=== PATIENT | female | born 1990 | race Two or more races ===

== ENCOUNTER 2024-05-25 05:02 | Inpatient (IN) ==
[2024-05-25 05:20] VITALS: BMI 23.9
[2024-05-25 05:31] LABS: AMNISURE ROM TEST THERE IS A RUPTURE (NO RUPTURE)
[2024-05-25 05:38] LABS: EOSINOPHILS % (AUTO) 0.3 % (0.9-2.9); HEMOGLOBIN 11.2 g/dL (12.0-16.0); LYMPHOCYTES # (AUTO) 3.3 X10^3/uL (1.3-2.9); MONOCYTES # (AUTO) 0.6 x10^3/uL (0.3-0.8)
[2024-05-25 05:43] LABS: BASOPHILS # (AUTO) 0.1 X10^3/uL (0.0-0.1); BASOPHILS % (AUTO) 0.8 % (0.2-1.0); HEMATOCRIT 34.6 % (36.0-47.0); LYMPHOCYTES % (AUTO) 44.3 % (21.0-51.0); MEAN CORPUSCULAR HEMOGLOBIN 29.8 pg (27.0-34.0); MEAN CORPUSCULAR HGB CONC 32.5 g/dL (33.0-35.0); MEAN CORPUSCULAR VOLUME 91.5 fL (80.0-100.0); MEAN PLATELET VOLUME 12.8 fL (7.4-11.0); NEUTROPHILS # (AUTO) 3.4 x10^3/uL (2.2-4.8); NEUTROPHILS % (AUTO) 46.6 % (42.0-75.0); PLATELET COUNT 101 X10^3/uL (150.0-450.0); RED BLOOD COUNT 3.78 X10^6/uL (3.5-5.4); RED CELL DISTRIBUTION WIDTH 14.1 % (11.6-16.5); WHITE BLOOD COUNT 7.4 X10^3/uL (3.6-10.0)
[2024-05-25 05:51] LABS: GIANT PLATELET RARE; PLATELET MORPHOLOGY COMMENT ABNORMAL (NORMAL)
[2024-05-25 05:52] LABS: ALANINE AMINOTRANSFERASE 34 Units/L (12-78); ALBUMIN 2.3 g/dL (3.4-5.0); ALKALINE PHOSPHATASE 517 Units/L (46-116); ASPARTATE AMINO TRANSFERASE 37 Units/L (15-37); BLOOD UREA NITROGEN 11 mg/dL (7-18); CALCIUM 7.9 mg/dL (8.5-10.1); CARBON DIOXIDE 25.6 mmol/L (21-32); CHLORIDE 103 mmol/L (98-107); COR CA(FOR HYPOALB) 9.3 mg/dL (8.5-10.1); CREATININE 0.79 mg/dL (0.55-1.02); GLUCOSE 73 mg/dL (65-99); POTASSIUM 4.3 mmol/L (3.5-5.1); SODIUM 136 mmol/L (136-145); TOTAL PROTEIN 7.3 g/dL (6.4-8.2); eGFR NON BLACK RACES > 60 (>60)
[2024-05-25] MEDS ORDERED: ZOFRAN INJ 4 MG VIAL IVP PRN (05:55)
[2024-05-25] MEDS ORDERED: REGLAN INJ 10 MG VIAL IVP PRN (05:55)
[2024-05-25] MEDS: D5 1/2 NS 1,000 ML 1,000 ML IV SCH (06:00)
[2024-05-25 06:04] LABS: RAPID PLASMA REAGIN NONREACTIVE (NONREACTIVE)
[2024-05-25] MEDS: OXYTOCIN 20 UNIT/1,000 ML-NS 20 UNIT/1,000 ML PLAST..BAG IV PRN (06:45)
[2024-05-25] MEDS: NUBAIN INJ 20 MG AMP IVP PRN (06:57)
--- NOTE | 2024-05-25 07:42 | DR.OB ---
OB QUICK NOTE Assessment/Plan (1) Active labor at term: Assessment/Plan: L&D 05/25/24 at 7:05am S-No complaint. O-Afebrile,VSS [id number] with good LTV, +accel, no decel. CTX=mild, irregular CVX=2cm/50%/-1/VTX SROM with clear fluid. IUPC and FSE placed. A-IUP at 39 6/7 weeks with SROM P-Begin pitocin induction F/U labs Anticipate
[2024-05-25] MEDS: NS 1,000 ML IV 1,000 ML ONE (07:45)
[2024-05-25] MEDS: D5 1/2 NS 1,000 ML 1,000 ML IV ONE (07:53)
[2024-05-25] MEDS: NUBAIN INJ 200 MG VIAL MULTIDOSE ONE ×2 (07:54→13:47)
[2024-05-25] MEDS: PITOCIN ONE (07:55)
[2024-05-25] MEDS: LR 1,000 ML IV 1,000 ML IV ONE ×2 (11:08→11:20)
--- NOTE | 2024-05-25 12:11 | DR.OB ---
OB QUICK NOTE Assessment/Plan (1) Active labor at term: Assessment/Plan: L&D 05/25/24 at 12:05pm Pitocin=18mu/min. S-No complaint except CTX. O-Afebrile,VSS QGQ=018 with good LTV, +accel, no decel. CTX=1 1/2 min., about 45-55mmHg CVX=5cm/75%/-1/VTX A-IUP at 39 6/7 weeks with SROM P-Cont. pitocin induction Anticipate
[2024-05-25] MEDS: NAROPIN EPIDURAL 0.2% 100 ML ONE (12:22)
[2024-05-25] MEDS: FENTANYL VIAL INJ 100 mcg ONE (12:22)
[2024-05-25 13:37] LABS: BILIRUBIN,URINE NEGATIVE (NEGATIVE); BLOOD/HEMOGLOBIN,URINE 3+ (NEGATIVE); GLUCOSE, URINE NEGATIVE (NEGATIVE); KETONES,URINE NEGATIVE (NEGATIVE); LEUKOCYTE ESTERASE ,URINE NEGATIVE (NEGATIVE); NITRITES,URINE NEGATIVE (NEGATIVE); PROTEIN,URINE 3+ (NEGATIVE); UROBILINOGEN,URINE NORMAL (NORMAL)
[2024-05-25 13:46] LABS: APPEARANCE,URINE CLEAR (CLEAR); COLOR,URINE YELLOW (YELLOW)
[2024-05-25 13:47] LABS: BACTERIA,URINE TRACE /HPF (NEGATIVE); SQUAMOUS EPITHELIAL CELL,UR RARE /HPF (NEGATIVE)
[2024-05-25] MEDS: BETADINE SOLN ONE (15:22)
[2024-05-25] MEDS: PITOCIN IVP ONE (15:26)
[2024-05-25] MEDS ORDERED: MOTRIN TAB 800 MG PO PRN ×3 (15:35→22:00)
--- NOTE | 2024-05-25 15:35 | DR.OB ---
OB QUICK NOTE Assessment/Plan (1) Active labor at term: Assessment/Plan: Delivery Note [employer] 05/25/24 at 15:22 Patient complete and pushing. Head delivered over intact perineum. No nuchal cord. Nose and mouth bulb suctioned. Body delivered over intact perineum. Cord clamped x 2 and cut. handed to attendant. Cord sent for gases. Placenta delivered spontaneously / intact / 3 vessel cord. No CVX tears. A small introital tear noted requiring a figure-of-8 stitch of 0-vicryl for hemostasis. Viable female delivered by , VTX/OA, wt=6'13" and 7/8, stable to NBN. Mother stable to RR. OOS=710il.
[2024-05-25] MEDS ORDERED: DERMOPLAST PAIN RELIEF SPRAY TOP PRN ×2 (16:12→18:17)
[2024-05-25] MEDS ORDERED: ADACEL or BOOSTRIX TDaP VACCINE IM ONE (16:12)
[2024-05-25] MEDS ORDERED: AMBIEN PO PRN ×2 (16:12→18:17)
[2024-05-25] MEDS ORDERED: MILK OF MAGNESIA PO PRN ×2 (16:12→18:17)
[2024-05-25] MEDS: OXYTOCIN 20 UNIT/1,000 ML-NS 20 UNIT/1,000 ML PLAST..BAG IV SCH (17:55)
[2024-05-25] MEDS: ILOTYCIN OPHTH OINT ONE (18:15)
[2024-05-25] MEDS: AQUA-MEPHYTON NEONATAL IM ONE (18:15)
[2024-05-25] MEDS ORDERED: MOTRIN TAB 800 MG PO SCH (22:00)
[2024-05-26 05:09] LABS: HEMATOCRIT 29.8 % (36.0-47.0); HEMOGLOBIN 9.9 g/dL (12.0-16.0)
[2024-05-26] MEDS: PRENATAL PLUS PO SCH (08:52)
[2024-05-26] MEDS: DEPO-PROVERA CONTRACEPTIVE INJ IM ONE (08:53)
[2024-05-26] MEDS ORDERED: PRENATAL PLUS PO SCH (09:00)
[2024-05-26 10:01] VITALS: RESP 18
[2024-05-26] MEDS: OXYTOCIN 20 UNIT/1,000 ML-NS 20 UNIT/1,000 ML PLAST..BAG IV SCH (14:10)
[2024-05-26 16:34] VITALS: BP 120/71; PULSE 69; TEMP 98.1; O2SAT 99
== END 2024-05-26 16:35 | disposition home or self-care (01) | DRG 807 ==
LOC: ER 05:05 → LD 05:49 → MED/SURG 17:24
PROVIDERS: ADMIT Obstetrics & Gynecology Obstetrics; ATTEND Specialist
DX: O26.893 Other specified pregnancy related conditions, third trimester; Z3A.39 39 weeks gestation of pregnancy; O71.4 Obstetric high vaginal laceration alone; Z37.0 Single live birth